=== PATIENT | female | born 1990 | race Caucasian/White ===

== ENCOUNTER 2018-07-22 09:16 | Day surgery (SDC) | payer BC, MEDICAID ==
[2018-07-22] MEDS ORDERED: Midazolam 1 MG/ML 2 ML SDV ONE (10:09)
[2018-07-22] MEDS ORDERED: Propofol 200 MG/20 ML SDV ONE (10:09)
[2018-07-22] MEDS ORDERED: fentaNYL 100 MCG/2 ML SDV ONE (10:09)
[2018-07-22] MEDS ORDERED: Lactated Ringers 1,000 ML IV SCH (10:45)
[2018-07-22 11:47] VITALS: BP 104/67
--- NOTE | 2018-07-22 11:50 | OR ---
DATE OF PROCEDURE: 07/22/2018 SURGEON: Javed Aggarwal MD PREOP DIAGNOSIS: Epigastric pain. POSTOP DIAGNOSES: Epigastric pain, possible mild gastritis and duodenitis, gastroesophageal reflux disease. PROCEDURE PERFORMED: Esophagogastroduodenoscopy with antral biopsies for CLOtest and for pathology to look for Helicobacter pylori, and biopsy of gastroesophageal junction. ANESTHESIA: IV anesthesia with monitored anesthesia care. INDICATION: This 28-year-old white female complains of epigastric pain. She was referred for upper endoscopy. I counseled her for this including risks and alternatives and she gave her informed consent to proceed. DESCRIPTION OF PROCEDURE: The patient was placed in the left lateral decubitus position. IV anesthesia was administered by the Anesthesia Service. Time-out was held. The flexible video Olympus upper endoscope was passed through her mouth down her esophagus, and into her stomach. The scope was easily passed through the pylorus into the duodenum reaching its third portion. The scope was then slowly withdrawn examining the mucosa throughout. The distal duodenum appeared unremarkable. The scope was brought back into the duodenal bulb, there was some evidence of some mild inflammation here suggestive of duodenitis. The scope was then brought back through the pylorus into the antrum. Again, there was some mild erythema suggestive of gastritis. We obtained antral biopsies for CLOtest and for pathology to look for Helicobacter pylori. The scope was retroflexed. The most proximal stomach appeared unremarkable. The scope was straightened and brought up through the GE junction. This was abnormal with the Z-line not being straight. We obtained multiple totalling at least 6 biopsies of the gastroesophageal junction. The scope was then brought proximally up through the remainder of the esophagus, which otherwise appeared unremarkable and it was removed. She tolerated the procedure well. Javed Aggarwal MD /[id number]
== END 2018-07-22 11:55 | disposition home or self-care (01) ==
LOC: JP.SDS 09:16
PROVIDERS: ATTEND Surgery
DX: K29.50 Unspecified chronic gastritis without bleeding (principal); K20.9 Esophagitis, unspecified; K21.9 Gastro-esophageal reflux disease without esophagitis; Z88.1 Allergy status to other antibiotic agents
CPT/HCPCS: 43239; 81025; 87081; J2250; J2704; J3010; J7120

== ENCOUNTER 2020-11-08 03:20 | Inpatient (IN) | payer MEDICAID ==
[2020-11-08] MEDS ORDERED: Calcium Carbonate 500 MG Tab.Chew PO PRN (04:15)
[2020-11-08] MEDS ORDERED: Sodium Chloride 0.9% 10 ML Syringe FLUSH PRN ×2 (04:15→17:03)
[2020-11-08] MEDS ORDERED: Ondansetron 4 MG/2 ML SDV IV PRN (04:15)
--- NOTE | 2020-11-08 04:38 | PCM.LDHP ---
L&D History of Present Illness - General Date of Service: 11/08/20 Admit Problem/Dx: Patient Status Order with Admit Dx/Problem 11/08/20 04:15 Patient Status [ADT] Routine Admission Diagnosis/Problem Admission Diagnosis/Problem Labor established Source of Information: Patient History Limitations: Reports: No Limitations - History of Present Illness Introduction:: 11/08/20 30 yo is here in labor on her due date. She was lavon intermittently yesterday and had her membranes sweeped. Her contractions were regular all e vening but 6-8 minutes apart. At about 0300 today her contractions got to every 3 minutes apart and her water broke, fluid is clear. Contractions are currently spaced out quite a bit. Baby looks great. She is A pos blood type, all STI's are negative, and rubella immune. She had COVID in August. She has had two vaginal deliveries in the past. She is comfortable and is planning a vaginal delivery without medications. Timing/Duration: Reports: seconds: (80-100), minutes: (7) Location, : Reports: Abdomen Severity: Moderate Improves with: Reports: None Worsens with: Reports: None Associated Symptoms: Reports: vaginal fluid. Denies: vaginal bleeding - Related Data Allergies/Adverse Reactions: Allergies Allergy/AdvReac Type Severity Reaction Status Date / Time azithromycin [From Zithromax] Allergy Cannot Verified 07/22/18 09:38 Remember Home Medications: Home Meds Clindamycin/Niacinamide [Clindamycin 1%-Niacinamide 4%] 60 gm TP DAILY 11/08/20 [History] Pnv No.95/Ferrous Fum/Folic AC [ Multivitamin Tablet] 1 tab PO DAILY 11/08/20 [History] Past Medical History HEENT History: Reports: Impaired Vision Gastrointestinal History: Reports: GER[employer] History: Reports: : 3 Para: 2 LMP (Approximate): - Infectious Disease History Infectious Disease History: Reports: Chicken Pox, Shingles - Past Surgical History HEENT Surgical History: Reports: Oral Surgery, Other (See Below) GI Surgical History: Reports: None Social & Family History - Family History Family Medical History: No Pertinent Family History - Caffeine Use Caffeine Use: Reports: Coffee - Recreational Drug Use Recreational Drug Use: No H&P Review of Systems - Review of Systems: Review Of Systems: See Below General: Reports: No Symptoms HEENT: Reports: No Symptoms Pulmonary: Reports: No Symptoms Cardiovascular: Reports: No Symptoms Gastrointestinal: Reports: No Symptoms Genitourinary: Reports: No Symptoms Musculoskeletal: Reports: No Symptoms Skin: Reports: No Symptoms Psychiatric: Reports: No Symptoms Neurological: Reports: No Symptoms Hematologic/Lymphatic: Reports: No Symptoms Immunologic: Reports: No Symptoms L&D Exam - Exam Exam: See Below - Vital Signs Vital Signs: Last Vital Signs Temp Pulse 81 11/08/20 03:40 Resp 16 11/08/20 03:40 BP 121/79 11/08/20 03:40 Pulse Ox 98 11/08/20 03:40 Weight: 68.039 kg - OB Specific Contraction Intensity: Moderate to Strong Movement: Active Heart Tones: Present Heart Tones per Min: 125 Heart Rate (FHR) Variability: Moderate (6-25 bmp) Presentation: Vertex - Velez Score Velez Score Cervix Position: Midposition Velez Score Consistency: Soft Velez Score Effacement: 51-70% Velez Score Dilation: 3-4 cm Velez Score Infant's Station: -1 ,0 Velez Score Total: 9 - Exam General: Alert, Oriented HEENT: PERRLA, Conjunctiva Clear, EACs Clear, EOMI, Hearing Intact, Mucosa Moist & Paden, Nares Patent, Normal Nasal Septum, Pupils Equal, Pupils Reactive Neck: Supple, Trachea Midline Lungs: Clear to Auscultation, Normal Respiratory Effort Cardiovascular: Regular Rate, Regular Rhythm GI/Abdominal Exam: Normal Bowel Sounds, Soft, Non-Tender, No Mass, Pelvis Stable Genitourinary: Normal external exam, Normal bimanual exam, Cervical dilitation, Enlarged uterus Back Exam: Normal Inspection, Full Range of Motion Extremities: Normal Inspection, Normal Range of Motion, Non-Tender, No Pedal Edema, Normal Capillary Refill Skin: Warm, Dry, Intact Neurological: Cranial Nerves Intact, Reflexes Equal Bilateral Psychiatric: Alert, Normal Affect, Normal Mood - Patient Data Lab Results Last 24 hrs: Laboratory Results - last 24 hr 11/08/20 11/08/20 Range/Units 03:36 03:36 Urine Color Yellow (YELLOW) Urine Appearance Clear (CLEAR) Urine pH 6.5 (5.0-8.0) Ur Specific [place] >= 1.030 (1.008-1.030) Urine Protein Negative (NEGATIVE) mg/dL Urine Glucose (UA) Negative (NEGATIVE) mg/dL Urine Ketones Negative (NEGATIVE) mg/dL Urine Occult Blood Moderate H (NEGATIVE) Urine Nitrite Negative (NEGATIVE) Urine Bilirubin Negative (NEGATIVE) Urine Urobilinogen 0.2 (0.2-1.0) EU/dL Ur Leukocyte Esterase Trace H (NEGATIVE) Urine RBC 30-40 H (0-5) Urine WBC 5-10 H (0-5) Ur Epithelial Cells Few Amorphous Sediment Not seen Urine Bacteria Rare Urine Mucus Few Urine Opiates Screen Negative (NEGATIVE) Ur Oxycodone Screen Negative (NEGATIVE) Urine Methadone Screen Negative (NEGATIVE) Ur Propoxyphene Screen Negative (NEGATIVE) Ur Barbiturates Screen Negative (NEGATIVE) Ur Tricyclics Screen Negative (NEGATIVE) Ur Phencyclidine Scrn Negative (NEGATIVE) Ur Amphetamine Screen Negative (NEGATIVE) U Methamphetamines Scrn Negative (NEGATIVE) Urine MDMA Screen Negative (NEGATIVE) U Benzodiazepines Scrn Negative (NEGATIVE) U Cocaine Metab Screen Negative (NEGATIVE) U Marijuana (THC) Screen Negative (NEGATIVE) - Problem List (1) Term SNOMED Code(s): 49655354 ICD Code: Z34.90 - ENCNTR FOR SUPRVSN OF NORMAL , UNSP, UNSP TRIMESTER Status: Acute Current Visit: Yes (2) SROM (spontaneous rupture of membranes) SNOMED Code(s): 323841689 ICD Code: [id number] - Status: Acute Current Visit: No Problem List Initiated/Reviewed/Updated: Yes Orders Last 24hrs: Active Orders 24 hr Category Date Time Status Patient Status [ADT] Routine ADT 11/08/20 04:15 Active Communication Order [RC] ASDIRECTED Care 11/08/20 04:15 Active Heart Tones [RC] PER UNIT ROUTINE Care 11/08/20 04:15 Active Notify Provider Vital Signs [RC] PRN Care 11/08/20 04:16 Active Notify Provider [RC] PRN Care 11/08/20 04:15 Active OB Check [OM.PC] Click To Edit Care 11/08/20 03:35 Ordered Up ad Mireya [RC] ASDIRECTED Care 11/08/20 04:15 Active VTE/DVT Education [RC] Click to Edit Care 11/08/20 04:17 Active Vital Signs [RC] PER UNIT ROUTINE Care 11/08/20 04:15 Active Regular Diet [DIET] Diet 11/08/20 Breakfast Active CBC WITH AUTO DIFF [HEME] Routine Lab 11/08/20 03:42 Ordered Calcium Carbonate [Tums] Med 11/08/20 04:15 Active 1,000 mg PO Q2H PRN Ondansetron [Zofran] Med 11/08/20 04:15 Active 4 mg IV Q4H PRN Oxytocin/Normal Saline [Pitocin in NS 20 Units/1,000 ML Med 11/08/20 04:30 Active ] 20 unit in 1,000 ml IV ASDIRECTED Sodium Chloride 0.9% [Saline Flush] Med 11/08/20 04:15 Active 10 ml FLUSH ASDIRECTED PRN DVT/VTE Prophylaxis Reflex [OM.PC] Routine Oth 11/08/20 04:15 Ordered Saline Lock Insert [OM.PC] Routine Oth 11/08/20 04:15 Ordered Resuscitation Status Routine Resus Stat 11/08/20 04:15 Ordered Medication Orders Calcium Carbonate/Glycine (Tums) 1,000 mg PO Q2H PRN PRN Reason: Indigestion Oxytocin/Sodium Chloride (Pitocin In Ns 20 Units/1,000 Ml) 20 unit in 1,000 mls @ 2,997 mls/hr IV ASDIRECTED TERRELL; Protocol Ondansetron HCl (Zofran) 4 mg IV Q4H PRN PRN Reason: Nausea/Vomiting Sodium Chloride (Saline Flush) 10 ml FLUSH ASDIRECTED PRN PRN Reason: Keep Vein Open Assessment/Plan Comment:: 11/08/20 here with SROM and labor at 40 0/7 SROM around 0300 at home of clear fluid FHT's category 1 SVE 4/60/-1 A pos GBS negative Uncomplicated Plan: Expectant management Monitor FHT's intermittently Anticipate
--- NOTE | 2020-11-08 08:06 | PCM.PNLD ---
Labor Progress Note - VS & Meds Vital Signs: Last Vital Signs Temp 36.7 C 11/08/20 06:00 Pulse 74 11/08/20 06:00 Resp 18 11/08/20 06:00 BP 114/57 L 11/08/20 06:00 Pulse Ox 98 11/08/20 03:40 Active Medications: Current Medications Calcium Carbonate/Glycine (Tums) 1,000 mg PO Q2H PRN PRN Reason: Indigestion Oxytocin/Sodium Chloride (Pitocin In Ns 20 Units/1,000 Ml) 20 unit in 1,000 mls @ 2,997 mls/hr IV ASDIRECTED TERRELL; Protocol Ondansetron HCl (Zofran) 4 mg IV Q4H PRN PRN Reason: Nausea/Vomiting Sodium Chloride (Saline Flush) 10 ml FLUSH ASDIRECTED PRN PRN Reason: Keep Vein Open Discontinued Medications Oxytocin/Sodium Chloride (Pitocin In Ns 20 Units/1,000 Ml) Confirm Administered Dose 20 unit in 1,000 mls @ as directed .ROUTE .STK-MED ONE Stop: 11/08/20 03:28 Last Admin: 11/08/20 05:00 Dose: Not Given Documented by: - Uterine Contractions Uterine Monitoring Mode: External [place] Contraction Frequency (min): 4-6 Contraction Duration (sec): 50-80 Contraction Intensity: Mild to Moderate Uterine Resting Tone: Soft - Monitoring Heart Rate (FHR) Variability: Moderate (6-25 bmp) - Vaginal Exam Dilation (cm): 4 Effacement (Percent): 65 Cervical Position: Anterior - Labor Progress (Free Text) Labor Progress: 11/08/2020 Patient has been resting well Contractions still spaced apart FHTs category one Patient would like as natural as possible, so would like to wait on medication use Plan- Will continue to monitor labor Will continue to monitor FHTs Patient can be up at anne Patient ok to bath or shower as needed Patient ok to eat regular diet Pain medication if patient requests call provider If patient has not made any change 12 hour post SROM will consider Pitocin Plan and anticipate a vaginal delivery
--- NOTE | 2020-11-08 12:40 | PCM.PNLD ---
Labor Progress Note - VS & Meds Vital Signs: Last Vital Signs Temp 36.7 C 11/08/20 09:05 Pulse 105 H 11/08/20 09:05 Resp 16 11/08/20 09:05 BP 114/57 L 11/08/20 06:00 Pulse Ox 98 11/08/20 09:05 Active Medications: Current Medications Calcium Carbonate/Glycine (Tums) 1,000 mg PO Q2H PRN PRN Reason: Indigestion Oxytocin/Sodium Chloride (Pitocin In Ns 20 Units/1,000 Ml) 20 unit in 1,000 mls @ 2,997 mls/hr IV ASDIRECTED TERRELL; Protocol Oxytocin/Sodium Chloride (Pitocin In Ns 20 Units/1,000 Ml) 20 unit in 1,000 mls @ 6 mls/hr IV TITRATE TERRELL; Protocol Ondansetron HCl (Zofran) 4 mg IV Q4H PRN PRN Reason: Nausea/Vomiting Sodium Chloride (Saline Flush) 10 ml FLUSH ASDIRECTED PRN PRN Reason: Keep Vein Open Discontinued Medications Oxytocin/Sodium Chloride (Pitocin In Ns 20 Units/1,000 Ml) Confirm Administered Dose 20 unit in 1,000 mls @ as directed .ROUTE .STK-MED ONE Stop: 11/08/20 03:28 Last Admin: 11/08/20 05:00 Dose: Not Given Documented by: - Uterine Contractions Uterine Monitoring Mode: External [place] Contraction Frequency (min): 2-5 Contraction Duration (sec): 50-80 Contraction Intensity: Mild to Moderate Uterine Resting Tone: Soft - Monitoring Monitor Mode: External Ultrasound Heart Rate (FHR) Variability: Moderate (6-25 bmp) - Vaginal Exam Dilation (cm): 4 Effacement (Percent): 80 Station: -1 Cervical Position: Midposition Sterile Vaginal Exam Performed By: Massiel Dowling - Labor Progress (Free Text) Labor Progress: 11/08/2020 Patient is doing well but progressing slowly SVE-4/80/-1 Contractions still irregular at times FHTs category one Patient tolerating and states contractions are strong but desires nothing for pain medication Education done on Pitocin vs Cytotec, patient decided to augment with pitocin at this time Plan- Continue to monitor labor Continue to monitor FHTs Patient may continue to be up ad anne Patient may continue to eat regular diet To start Pitocin per protocol Plan and anticipate a vaginal delivery
[2020-11-08] MEDS: Lactated Ringers 1,000 ML IV ONE (17:00)
[2020-11-08] MEDS ORDERED: ePHEDrine 50 MG/ML SDV IVPUSH PRN ×2 (17:03)
[2020-11-08] MEDS ORDERED: diphenhydrAMINE 50 MG/ML SDV IVPUSH PRN ×2 (17:03)
[2020-11-08] MEDS ORDERED: Naloxone 0.4 MG/ML SDV IVPUSH PRN (17:03)
[2020-11-08] MEDS ORDERED: Ropivacaine 100 ML ONE (17:06)
--- NOTE | 2020-11-08 17:07 | PCM.PNLD ---
Labor Progress Note - VS & Meds Vital Signs: Last Vital Signs Temp 36.7 C 11/08/20 12:55 Pulse 90 11/08/20 12:55 Resp 16 11/08/20 12:55 BP 107/68 11/08/20 12:55 Pulse Ox 96 11/08/20 12:55 Active Medications: Current Medications Calcium Carbonate/Glycine (Tums) 1,000 mg PO Q2H PRN PRN Reason: Indigestion Diphenhydramine HCl (Benadryl) 25 mg IVPUSH Q6H PRN PRN Reason: Itching Diphenhydramine HCl (Benadryl) 50 mg IVPUSH Q6H PRN PRN Reason: Itching Ephedrine Sulfate (Ephedrine Sulfate) 10 mg IVPUSH ASDIRECTED PRN PRN Reason: Hypotension Ephedrine Sulfate (Ephedrine Sulfate) 10 mg IVPUSH ASDIRECTED PRN PRN Reason: Hypotension Oxytocin/Sodium Chloride (Pitocin In Ns 20 Units/1,000 Ml) 20 unit in 1,000 mls @ 2,997 mls/hr IV ASDIRECTED TERRELL; Protocol Last Titration: 11/08/20 13:20 Dose: 3 munits/min, 9 mls/hr Documented by: Ropivacaine 200 mg/ Premix 100 mls @ 0 mls/hr EPIDUR ASDIRECTED TERRELL Lactated Ringer's (Ringers, Lactated) 1,000 mls @ 999 mls/hr IV .BOLUS ONE Stop: 11/08/20 18:03 Naloxone HCl (Narcan) 0.1 mg IVPUSH ASDIRECTED PRN PRN Reason: Oversedation Ondansetron HCl (Zofran) 4 mg IV Q4H PRN PRN Reason: Nausea/Vomiting Sodium Chloride (Saline Flush) 10 ml FLUSH ASDIRECTED PRN PRN Reason: Keep Vein Open Sodium Chloride (Saline Flush) 10 ml FLUSH ASDIRECTED PRN PRN Reason: Keep Vein Open Discontinued Medications Oxytocin/Sodium Chloride (Pitocin In Ns 20 Units/1,000 Ml) Confirm Administered Dose 20 unit in 1,000 mls @ as directed .ROUTE .STK-MED ONE Stop: 11/08/20 03:28 Last Admin: 11/08/20 05:00 Dose: Not Given Documented by: - Uterine Contractions Uterine Monitoring Mode: External [place] Contraction Frequency (min): 2-3 Contraction Duration (sec): 70-90 Contraction Intensity: Strong Uterine Resting Tone: Soft - Monitoring Monitor Mode: External Ultrasound Heart Rate (FHR) Variability: Moderate (6-25 bmp) - Vaginal Exam Dilation (cm): 8 Effacement (Percent): 85 Station: -1 Cervical Position: Midposition Sterile Vaginal Exam Performed By: Yoko Godwin - Labor Progress (Free Text) Labor Progress: 11/08/2020 Patient very slow for progress in transition stage so requesting an epidural SVE-04/26-/-1 but has been 7cm for sometime FHTs category one Contractions every 2-5 minutes patient currently changing position for pain control Plan- Continue to monitor labor Continue to monitor FHTs Epidural per patient request Plan and anticipate a vaginal delivery
[2020-11-08] MEDS ORDERED: Ropivacaine 200 MG in Premix Bag 1 BAG EPIDUR SCH (17:15)
--- NOTE | 2020-11-08 18:20 | PCM.DEL ---
L & D Note - General Info Date of Service: 11/08/20 Mother's Due Date: 11/08/20 - Delivery Note Labor: Augmented by Oxytocin Delivery Outcome: Livebirth Infant Delivery Method: Spontaneous Vaginal Delivery-Single Delivery Mode: Spontaneous Presentation: Left Occiput Anterior (STEFAN) Nuchal Cord: None Anesthesia Type: Epidural Amniotic Fluid Description: Clear Episiotomy Type: None Laceration: None Placenta: Intact, Spontaneous Cord: 3 Vessels Estimated Blood Loss: 300 Resuscitation Needed: No : Bulb Syringe, Stimulated, Warmed, [place] Used Provider: Yoko Godwin Score 1 min: 9 Score 5 min: 9 Second Stage Interventions: Reports: Second Nurse Assessed Progress of Descent, Second Nurse Reviewed Contraction Pattern, Second Nurse Reviewed Heart Tones, Encouragement Given, Pushing Effectively, Pushing, Stirrups/Leg Supports Delivery Comments (Free Text/Narrative):: 11/08/2020 30 yo delivered a viable female at 40 0/7 gestational weeks at 1744 in STEFAN position after pushing through two contractions. Infant was then delivered and placed up on mothers abdomen on prewarmed blanket. began to cry and pink in color, delayed cord clamping was done for approximately 90 seconds, then cord was double clamped and cut by father of . then was dried and stimulated more and began to cry more. APGARS-9/9, weight-7lbs 2oz, length-20 inches, placenta then came intact and spontaneous, three vessel cord, EBL-300 ml. No lacerations noted of vagina, perineum, labia, rectum, or cervix. now skin to skin with mother and both stable in labor and delivery room Stages of labor- [id number] - General Info Date of Service: 11/08/20 Functional Status: Reports: Pain Controlled - Review of Systems General: Reports: No Symptoms HEENT: Reports: No Symptoms Pulmonary: Reports: No Symptoms Cardiovascular: Reports: No Symptoms Gastrointestinal: Reports: No Symptoms Genitourinary: Reports: No Symptoms Musculoskeletal: Reports: No Symptoms Skin: Reports: No Symptoms Neurological: Reports: No Symptoms Psychiatric: Reports: No Symptoms - Patient Data Vitals - Most Recent: Last Vital Signs Temp 36.7 C 11/08/20 12:55 Pulse 90 11/08/20 12:55 Resp 16 11/08/20 12:55 BP 107/68 11/08/20 12:55 Pulse Ox 96 11/08/20 12:55 Weight - Most Recent: 68.039 kg Lab Results Last 24 Hours: Laboratory Results - last 24 hr 11/08/20 11/08/20 11/08/20 Range/Units 03:36 03:36 03:54 WBC 10.5 (4.5-11.0) K/uL RBC 3.75 (3.30-5.50) M/uL Hgb 11.9 L (12.0-15.0) g/dL Hct 35.9 L (36.0-48.0) % MCV 96 (80-98) fL MCH 32 H (27-31) pg MCHC 33 (32-36) % Plt Count 162 (150-400) K/uL Neut % (Auto) 78 H (36-66) % Lymph % (Auto) 15 L (24-44) % [place] % (Auto) 6 (2-6) % Eos % (Auto) 1 L (2-4) % Baso % (Auto) 0 (0-1) % Urine Color Yellow (YELLOW) Urine Appearance Clear (CLEAR) Urine pH 6.5 (5.0-8.0) Ur Specific [place] >= 1.030 (1.008-1.030) Urine Protein Negative (NEGATIVE) mg/dL Urine Glucose (UA) Negative (NEGATIVE) mg/dL Urine Ketones Negative (NEGATIVE) mg/dL Urine Occult Blood Moderate H (NEGATIVE) Urine Nitrite Negative (NEGATIVE) Urine Bilirubin Negative (NEGATIVE) Urine Urobilinogen 0.2 (0.2-1.0) EU/dL Ur Leukocyte Esterase Trace H (NEGATIVE) Urine RBC 30-40 H (0-5) Urine WBC 5-10 H (0-5) Ur Epithelial Cells Few Amorphous Sediment Not seen Urine Bacteria Rare Urine Mucus Few Urine Opiates Screen Negative (NEGATIVE) Ur Oxycodone Screen Negative (NEGATIVE) Urine Methadone Screen Negative (NEGATIVE) Ur Propoxyphene Screen Negative (NEGATIVE) Ur Barbiturates Screen Negative (NEGATIVE) Ur Tricyclics Screen Negative (NEGATIVE) Ur Phencyclidine Scrn Negative (NEGATIVE) Ur Amphetamine Screen Negative (NEGATIVE) U Methamphetamines Scrn Negative (NEGATIVE) Urine MDMA Screen Negative (NEGATIVE) U Benzodiazepines Scrn Negative (NEGATIVE) U Cocaine Metab Screen Negative (NEGATIVE) U Marijuana (THC) Screen Negative (NEGATIVE) Med Orders - Current: Current Medications Acetaminophen (Tylenol Bulk Bottle) 1 - 2 mg PO Q4H PRN PRN Reason: Pain Calcium Carbonate/Glycine (Tums) 1,000 mg PO Q2H PRN PRN Reason: Indigestion Diphenhydramine HCl (Benadryl) 25 mg IVPUSH Q6H PRN PRN Reason: Itching Diphenhydramine HCl (Benadryl) 50 mg IVPUSH Q6H PRN PRN Reason: Itching Ephedrine Sulfate (Ephedrine Sulfate) 10 mg IVPUSH ASDIRECTED PRN PRN Reason: Hypotension Oxytocin/Sodium Chloride (Pitocin In Ns 20 Units/1,000 Ml) 20 unit in 1,000 mls @ 2,997 mls/hr IV ASDIRECTED TERRELL; Protocol Last Titration: 11/08/20 16:07 Dose: 4 munits/min, 12 mls/hr Documented by: Ropivacaine 200 mg/ Premix 100 mls @ 0 mls/hr EPIDUR ASDIRECTED TERRELL Ibuprofen (Motrin Bulk Bottle) 600 mg PO Q6H PRN PRN Reason: Pain Naloxone HCl (Narcan) 0.1 mg IVPUSH ASDIRECTED PRN PRN Reason: Oversedation Ondansetron HCl (Zofran) 4 mg IV Q4H PRN PRN Reason: Nausea/Vomiting Sodium Chloride (Saline Flush) 10 ml FLUSH ASDIRECTED PRN PRN Reason: Keep Vein Open Sodium Chloride (Saline Flush) 10 ml FLUSH ASDIRECTED PRN PRN Reason: Keep Vein Open Discontinued Medications Benzocaine (Axeh-Z-Xxkwrjx 20% [place]) 0 gm TOP ONETIME ONE Stop: 11/08/20 18:02 Emollient Ointment (Lansinoh Hpa) 0 gm TOP ONETIME ONE Stop: 11/08/20 18:02 Oxytocin/Sodium Chloride (Pitocin In Ns 20 Units/1,000 Ml) Confirm Administered Dose 20 unit in 1,000 mls @ as directed .ROUTE .STK-MED ONE Stop: 11/08/20 03:28 Last Admin: 11/08/20 05:00 Dose: Not Given Documented by: Lactated Ringer's (Ringers, Lactated) 1,000 mls @ 999 mls/hr IV .BOLUS ONE Stop: 11/08/20 18:03 Ropivacaine (Naropin 0.2%) Confirm Administered Dose 100 mls @ as directed .ROUTE .STK-MED ONE Stop: 11/08/20 17:07 Ron Causey ([place]) 1 pad TOP ONETIME ONE Stop: 11/08/20 18:02 - Exam General: Alert, Oriented, Cooperative HEENT: Pupils Equal, Pupils Reactive, EOMI, Mucous Membr. Moist/[place] Neck: Supple Lungs: Clear to Auscultation, Normal Respiratory Effort Cardiovascular: Regular Rate, Regular Rhythm GI/Abdominal Exam: Normal Bowel Sounds, Soft, Non-Tender, No Organomegaly, No Distention, No Abnormal Bruit, No Mass, Pelvis Stable (Female) Exam: Normal External Exam, Normal Speculum Exam, Normal Bimanual Exam Back Exam: Normal Inspection, Full Range of Motion Extremities: Normal Inspection, Normal Range of Motion, Non-Tender, No Pedal Edema, Normal Capillary Refill Skin: Warm, Dry, Intact Neurological: No New Focal Deficit Psy/Mental Status: Alert, Normal Affect, Normal Mood - Problem List & Annotations (1) (infant) SNOMED Code(s): 859205579 Code(s): Z78.9 - OTHER SPECIFIED HEALTH STATUS Status: Acute Current Visit: Yes (2) Vaginal delivery SNOMED Code(s): 531720462 Code(s): O80 - ENCOUNTER FOR FULL-TERM UNCOMPLICATED DELIVERY Status: Acute Current Visit: No - Problem List Review Problem List Initiated/Reviewed/Updated: Yes - My Orders Last 24 Hours: My Active Orders 11/08/20 15:02 Communication Order [RC] Per Unit Routine Communication Order [RC] Per Unit Routine Communication Order [RC] Per Unit Routine Communication Order [RC] Per Unit Routine Oxygen Therapy [RC] ASDIRECTED Pulse Oximetry [RC] ASDIRECTED Verify Patient Consent Obtain [RC] ASDIRECTED Vital Signs [RC] PER UNIT ROUTINE Medication Discontinuation Instructions [OM.PC] Routine 11/08/20 17:03 Communication Order [RC] ASDIRECTED Communication Order [RC] ROUTINE Communication Order [RC] ROUTINE Communication Order [RC] ROUTINE Local Anesthetic Infusion Pump [RC] ASDIRECTED Oxygen Therapy [RC] ASDIRECTED PCEA Epidural [RC] ASDIRECTED PCEA Epidural [RC] ASDIRECTED PCEA Epidural [RC] ASDIRECTED Peripheral IV Care [RC] . DIRECTED Pulse Oximetry [RC] ASDIRECTED Urinary Catheter Assessment [RC] ASDIRECTED Vital Signs [RC] PER UNIT ROUTINE Naloxone [Narcan] 0.1 mg IVPUSH ASDIRECTED PRN Sodium Chloride 0.9% [Saline Flush] 10 ml FLUSH ASDIRECTED PRN diphenhydrAMINE [Benadryl] 25 mg IVPUSH Q6H PRN diphenhydrAMINE [Benadryl] 50 mg IVPUSH Q6H PRN ePHEDrine [ePHEDrine sulfate] 10 mg IVPUSH ASDIRECTED PRN Epidural Catheter Management [OM.PC] Routine Epidural Catheter Management [OM.PC] Urgent Peripheral IV Insertion Pediatric [OM.PC] Routine 11/08/20 17:15 Insert Urinary Catheter [OM.PC] ASDIRECTED Ropivacaine [Naropin 0.2%] 200 mg Premix Bag 1 bag EPIDUR ASDIRECTED 11/08/20 18:01 Patient Status [ADT] Routine Vital Signs [RC] PFP Assess Lochia [WOMSER] Per Unit Routine Assess Uterine Involution [WOMSER] Per Unit Routine 11/08/20 18:02 Ice Therapy [OM.PC] Per Unit Routine Perineal Care [OM.PC] Per Unit Routine 11/08/20 18:03 Acetaminophen [Tylenol Bulk Bottle] 1 - 2 mg PO Q4H PRN Ibuprofen [Motrin Bulk Bottle] 600 mg PO Q6H PRN 11/09/20 06:00 CBC WITH AUTO DIFF [HEME] Routine - Assessment Assessment:: 11/08/2020 30 yo G3 now P3 without complications at 40 0/7 gestational weeks Labs-A positive, Hep B neg, Hep C neg, HIV neg, Rubella Immune, RPR nonreactive, GBS negative - Plan Plan:: 11/08/20 here with SROM and labor at 40 0/7 SROM around 0300 at home of clear fluid FHT's category 1 SVE 60/-1 A pos GBS negative Uncomplicated Plan: Expectant management Monitor FHT's intermittently Anticipate 11/08/2020 Routine cares Encourage and support Plan discharge in 24-48 hours
[2020-11-08] MEDS: Acetaminophen 325 MG Tab, 50 Tab Bulk Bottle PO PRN (18:58)
[2020-11-08] MEDS: Ibuprofen 200 MG Tab, 24 Tab Bulk Bottle PO PRN (18:59)
[2020-11-08] MEDS: Lanolin 100% Cream 40 GM Tube TOP ONE (21:35)
[2020-11-08] MEDS: Benzocaine 20% Top Spray 56 GM Bottle TOP ONE (21:35)
[2020-11-08] MEDS: Witch Hazel Medicated Pads 100/Jar TOP ONE (21:35)
[2020-11-09] MEDS: Witch Hazel Medicated Pads 100/Jar TOP PRN (07:06)
[2020-11-09] MEDS: Benzocaine 20% Top Spray 56 GM Bottle TOP PRN (07:08)
[2020-11-09] MEDS: Lanolin 100% Cream 40 GM Tube TOP PRN (07:08)
[2020-11-09] MEDS ORDERED: Acetaminophen 325 MG Tab, 50 Tab Bulk Bottle PO PRN (07:09)
--- NOTE | 2020-11-09 08:23 | PCM.PNPP ---
- General Info Date of Service: 11/09/20 Functional Status: Reports: Pain Controlled - Review of Systems General: Reports: No Symptoms HEENT: Reports: No Symptoms Pulmonary: Reports: No Symptoms Cardiovascular: Reports: No Symptoms Gastrointestinal: Reports: No Symptoms Genitourinary: Reports: No Symptoms Musculoskeletal: Reports: No Symptoms Skin: Reports: No Symptoms Neurological: Reports: No Symptoms Psychiatric: Reports: No Symptoms - General Info Date of Service: 11/09/20 - Patient Data Vital Signs - Most Recent: Last Vital Signs Temp 36.6 C 11/09/20 07:19 Pulse 69 11/09/20 07:19 Resp 18 11/09/20 07:19 BP 103/62 11/09/20 07:19 Pulse Ox 99 11/09/20 07:19 Weight - Most Recent: 68.039 kg I&O - Last 24 Hours: Intake & Output 11/08/20 11/09/20 11/09/20 22:59 06:59 14:59 Output Total 500 Balance -500 Lab Results - Last 24 Hours: Laboratory Results - last 24 hr 11/09/20 Range/Units 05:30 WBC 10.8 (4.5-11.0) K/uL RBC 3.37 (3.30-5.50) M/uL Hgb 10.5 L (12.0-15.0) g/dL Hct 32.9 L (36.0-48.0) % MCV 98 (80-98) fL MCH 31 (27-31) pg MCHC 32 (32-36) % Plt Count 149 L (150-400) K/uL Neut % (Auto) 77 H (36-66) % Lymph % (Auto) 16 L (24-44) % [place] % (Auto) 7 H (2-6) % Eos % (Auto) 1 L (2-4) % Baso % (Auto) 0 (0-1) % Med Orders - Current: Current Medications Acetaminophen (Tylenol Bulk Bottle) 325 - 650 mg PO Q4H PRN PRN Reason: Pain Benzocaine (Gzvz-E-Ibkfdyv 20% [place]) 30 gm TOP ASDIRECTED PRN PRN Reason: perineal soreness Last Admin: 11/09/20 07:08 Dose: 30 gm Documented by: Calcium Carbonate/Glycine (Tums) 1,000 mg PO Q2H PRN PRN Reason: Indigestion Diphenhydramine HCl (Benadryl) 25 mg IVPUSH Q6H PRN PRN Reason: Itching Diphenhydramine HCl (Benadryl) 50 mg IVPUSH Q6H PRN PRN Reason: Itching Docusate Sodium (Colace) 200 mg PO DAILY PRN PRN Reason: Constipation Emollient Ointment (Lansinoh Hpa) 1 gm TOP ASDIRECTED PRN PRN Reason: Nipple tenderness Last Admin: 11/09/20 07:08 Dose: 1 gm Documented by: Ephedrine Sulfate (Ephedrine Sulfate) 10 mg IVPUSH ASDIRECTED PRN PRN Reason: Hypotension Oxytocin/Sodium Chloride (Pitocin In Ns 20 Units/1,000 Ml) 20 unit in 1,000 mls @ 2,997 mls/hr IV ASDIRECTED TERRELL; Protocol Last Titration: 11/08/20 16:07 Dose: 4 munits/min, 12 mls/hr Documented by: Ropivacaine 200 mg/ Premix 100 mls @ 0 mls/hr EPIDUR ASDIRECTED TERRELL Ibuprofen (Motrin Bulk Bottle) 600 mg PO Q6H PRN PRN Reason: Pain Last Admin: 11/08/20 18:59 Dose: 600 mg Documented by: Naloxone HCl (Narcan) 0.1 mg IVPUSH ASDIRECTED PRN PRN Reason: Oversedation Ondansetron HCl (Zofran) 4 mg IV Q4H PRN PRN Reason: Nausea/Vomiting Sodium Chloride (Saline Flush) 10 ml FLUSH ASDIRECTED PRN PRN Reason: Keep Vein Open Sodium Chloride (Saline Flush) 10 ml FLUSH ASDIRECTED PRN PRN Reason: Keep Vein Open Witch Deangelo (Tucks) 1 pad TOP ASDIRECTED PRN PRN Reason: perineal soreness Last Admin: 11/09/20 07:06 Dose: 1 pad Documented by: Discontinued Medications Acetaminophen (Tylenol Bulk Bottle) 1 - 2 mg PO Q4H PRN PRN Reason: Pain Last Admin: 11/08/20 18:58 Dose: 650 mg Documented by: Benzocaine (Chco-C-Vcrziuh 20% [place]) 0 gm TOP ONETIME ONE Stop: 11/08/20 18:02 Last Admin: 11/08/20 21:35 Dose: Not Given Documented by: Emollient Ointment (Lansinoh Hpa) 0 gm TOP ONETIME ONE Stop: 11/08/20 18:02 Last Admin: 11/08/20 21:35 Dose: Not Given Documented by: Oxytocin/Sodium Chloride (Pitocin In Ns 20 Units/1,000 Ml) Confirm Administered Dose 20 unit in 1,000 mls @ as directed .ROUTE .STK-MED ONE Stop: 11/08/20 03:28 Last Admin: 11/08/20 05:00 Dose: Not Given Documented by: Lactated Ringer's (Ringers, Lactated) 1,000 mls @ 999 mls/hr IV .BOLUS ONE Stop: 11/08/20 18:03 Ropivacaine (Naropin 0.2%) Confirm Administered Dose 100 mls @ as directed .ROUTE .STK-MED ONE Stop: 11/08/20 17:07 Witch Deangelo (Tucks) 1 pad TOP ONETIME ONE Stop: 11/08/20 18:02 Last Admin: 11/08/20 21:35 Dose: Not Given Documented by: - Interaction Disposition, : [place] in Room with Family Feeding: Breastfed ; Nursed Well Support Person: - Recovery Exam Fundal Tone: Firm Fundal Level: At Umbilicus Fundal Placement: Midline Lochia Amount: Moderate Lochia Color: Rubra/Red Perineum Description: Intact, Minimal Bruising/Swelling Episiotomy/Laceration: None Bladder Status: Palpable - Exam General: Alert, Oriented, Cooperative HEENT: Pupils Equal, Pupils Reactive, EOMI, Mucous Membr. Moist/[place] Neck: Supple Lungs: Clear to Auscultation, Normal Respiratory Effort Cardiovascular: Regular Rate, Regular Rhythm GI/Abdominal Exam: Normal Bowel Sounds, Soft, Non-Tender, No Organomegaly, No Distention, No Abnormal Bruit, No Mass, Pelvis Stable Extremities: Normal Inspection, Normal Range of Motion, Non-Tender, No Pedal Edema, Normal Capillary Refill Skin: Warm, Dry, Intact Neurological: No New Focal Deficit Psy/Mental Status: Alert, Normal Affect, Normal Mood - Problem List & Annotations (1) (infant) SNOMED Code(s): 827089213 Code(s): Z78.9 - OTHER SPECIFIED HEALTH STATUS Status: Acute Current Visit: Yes (2) Vaginal delivery SNOMED Code(s): 376264552 Code(s): O80 - ENCOUNTER FOR FULL-TERM UNCOMPLICATED DELIVERY Status: Acute Current Visit: No - Problem List Review Problem List Initiated/Reviewed/Updated: Yes - My Orders Last 24 Hours: My Active Orders 11/08/20 15:02 Communication Order [RC] Per Unit Routine Communication Order [RC] Per Unit Routine Communication Order [RC] Per Unit Routine Oxygen Therapy [RC] ASDIRECTED Pulse Oximetry [RC] ASDIRECTED Verify Patient Consent Obtain [RC] ASDIRECTED Vital Signs [RC] PER UNIT ROUTINE Medication Discontinuation Instructions [OM.PC] Routine 11/08/20 17:03 Communication Order [RC] ASDIRECTED Communication Order [RC] ROUTINE Communication Order [RC] ROUTINE Local Anesthetic Infusion Pump [RC] ASDIRECTED Oxygen Therapy [RC] ASDIRECTED PCEA Epidural [RC] ASDIRECTED PCEA Epidural [RC] ASDIRECTED PCEA Epidural [RC] ASDIRECTED Peripheral IV Care [RC] . DIRECTED Pulse Oximetry [RC] ASDIRECTED Urinary Catheter Assessment [RC] ASDIRECTED Vital Signs [RC] PER UNIT ROUTINE Naloxone [Narcan] 0.1 mg IVPUSH ASDIRECTED PRN Sodium Chloride 0.9% [Saline Flush] 10 ml FLUSH ASDIRECTED PRN diphenhydrAMINE [Benadryl] 25 mg IVPUSH Q6H PRN diphenhydrAMINE [Benadryl] 50 mg IVPUSH Q6H PRN ePHEDrine [ePHEDrine sulfate] 10 mg IVPUSH ASDIRECTED PRN Epidural Catheter Management [OM.PC] Routine Epidural Catheter Management [OM.PC] Urgent Peripheral IV Insertion Pediatric [OM.PC] Routine 11/08/20 17:15 Insert Urinary Catheter [OM.PC] ASDIRECTED Ropivacaine [Naropin 0.2%] 200 mg Premix Bag 1 bag EPIDUR ASDIRECTED 11/08/20 18:01 Patient Status [ADT] Routine Vital Signs [RC] PFP Assess Lochia [WOMSER] Per Unit Routine Assess Uterine Involution [WOMSER] Per Unit Routine 11/08/20 18:02 Ice Therapy [OM.PC] Per Unit Routine Perineal Care [OM.PC] Per Unit Routine 11/08/20 18:03 Ibuprofen [Motrin Bulk Bottle] 600 mg PO Q6H PRN 11/08/20 21:36 Benzocaine [Hikx-H-Cwknjyk 20% [place]] 30 gm TOP ASDIRECTED PRN 11/08/20 21:37 Lanolin [Lansinoh HPA] 1 gm TOP ASDIRECTED PRN 11/08/20 21:38 witgia Deangelo [Tucks] 1 pad TOP ASDIRECTED PRN 11/09/20 07:09 Acetaminophen [Tylenol Bulk Bottle] 325 - 650 mg PO Q4H PRN 11/09/20 08:08 Docusate Sodium [Colace] 200 mg PO DAILY PRN - Assessment Assessment:: 11/08/2020 30 yo G3 now P3 without complications at 40 0/7 gestational weeks Labs-A positive, Hep B neg, Hep C neg, HIV neg, Rubella Immune, RPR nonreactive, GBS negative 11/09/2020 without complications well Voiding and passing gas Fundus firm and bleeding decreasing Hgb-10.5 Pain well controlled Patient desires 24 hour discharge - Plan Plan:: 11/08/20 here with SROM and labor at 40 0/7 SROM around 0300 at home of clear fluid FHT's category 1 SVE 4/60/-1 A pos GBS negative Uncomplicated Plan: Expectant management Monitor FHT's intermittently Anticipate 11/08/2020 Routine cares Encourage and support Plan discharge in 24-48 hours 11/09/2020 Continue routine cares Continue to encourage and support Stool softeners per patient request IV can be D/C'd Plan discharge home today
[2020-11-09] MEDS: Docusate Sodium 100 MG Cap PO PRN (09:44)
[2020-11-09 11:11] VITALS: PULSE 81
[2020-11-09 19:04] VITALS: BP 113/69
--- NOTE | 2020-11-10 12:24 | ANES ---
DATE OF SERVICE: 11/08/2020 INDICATIONS: Kesha Price is a 30-year-old female, patient of Massiel Dowling. I was consulted with Dr. Godwin to assess the patient for labor epidural. Upon arrival, I found a healthy 30-year-old female, and after reviewing past history as well as lab work, found no contraindication to epidural placement. She was okay to proceed and consent was received. TECHNIQUE: I had her seated at the edge of the bed. Betadine prep x3 to lumbar region. Sterile drape was placed, 1% lidocaine skin wheal as well as deep at the L3-L4 region. A 17- gauge Tuohy was placed to loss of resistance. Negative CSF, negative heme, negative paresthesia. Catheter was inserted to 12 cm. Needle was removed. Drape was removed. A test dose was given, 3 mL 1.5% lidocaine 1:200,000 epinephrine with negative sequelae. The catheter was secured to her back. I dosed her with 12 mL of 0.2% ropivacaine and began infusion of the same 0.2% ropivacaine. She tolerated the procedure quite well. Please refer to nurse's notes for vital signs and neuro status, which were unchanged and within normal limits. I reported off to staff on the procedure. Thank you for the consult. Daryl Flores CRNA /[id number]
== END 2020-11-09 19:20 | disposition home or self-care (01) | DRG 807 ==
LOC: JP.OBCHECK 03:20 → JP.OB 03:35 → OBSVTOIN 17:44 → JP.OB 17:44 → JP.MS 21:30
PROVIDERS: ADMIT Advanced Practice Midwife; ATTEND Advanced Practice Midwife
PROC: 10E0XZZ Delivery of Products of Conception, External Approach (ICD-10-PCS; principal; 2020-11-08)
PROC: 3E0R3BZ Introduction of Anesthetic Agent into Spinal Canal, Percutaneous Approach (ICD-10-PCS; 2020-11-08)
PROC: 00HU33Z Insertion of Infusion Device into Spinal Canal, Percutaneous Approach (ICD-10-PCS; 2020-11-08)
DX: O48.0 Post-term pregnancy (principal); Z37.0 Single live birth; O99.62 Diseases of the digestive system complicating childbirth; K21.9 Gastro-esophageal reflux disease without esophagitis; Z3A.40 40 weeks gestation of pregnancy; Z86.16 Personal history of COVID-19
CPT/HCPCS: 36415; 51701; 59409; 80305-QW; 81001; 85025; 99211; A9270-GY; J2590; J2795; J7120

== ENCOUNTER 2022-08-14 19:33 | Emergency (ER) | payer MEDICAID ==
[2022-08-14 20:07] VITALS: BP 122/92; PULSE 107
== END 2022-08-14 23:25 | disposition home or self-care (01) ==
LOC: JP.ED 19:33
DX: R10.30 Lower abdominal pain, unspecified (principal); Z88.1 Allergy status to other antibiotic agents
CPT/HCPCS: 76830; 76857; 81001; 81025; 93976; 99284

== ENCOUNTER 2022-11-04 15:03 | Emergency (ER) | payer MEDICAID ==
[2022-11-04 18:40] VITALS: BP 127/83; PULSE 84
== END 2022-11-04 17:53 | disposition home or self-care (01) ==
LOC: JP.ED 15:03
DX: R42 Dizziness and giddiness (principal); R41.0 Disorientation, unspecified; R06.02 Shortness of breath; Z88.1 Allergy status to other antibiotic agents
CPT/HCPCS: 36415; 84443; 85379; 93005; 99285